=== PATIENT | male | born 1950 | race Caucasian/White ===

== ENCOUNTER 2020-12-04 19:25 | Emergency (ER) | payer MEDICARE, OTHER ==
[~2020-12-04] VITALS: Ht 175.3 cm; Wt 67.6 kg
[2020-12-04 20:10] LABS: BASOPHILS % (AUTO) 0.3 % (0.0-2.0); EOSINOPHILS % (AUTO) 2.3 % (0.0-6.0); HEMATOCRIT 43 % (39-51); HEMOGLOBIN 14.5 g/dL (13.5-17.5); LYMPHOCYTES # (AUTO) 2.2 K/uL (0.8-4.8); LYMPHOCYTES % (AUTO) 21.9 % (20.0-44.0); MEAN CORPUSCULAR HGB CONC 34 g/dl (31.0-36.0); MEAN CORPUSCULAR VOLUME 96 fL (80-96); MONOCYTES # (AUTO) 0.9 K/uL (0.1-1.30); MONOCYTES % (AUTO) 8.8 % (2.0-12.0); NEUTROPHILS # (AUTO) 6.6 K/uL (1.8-8.9); NEUTROPHILS % (AUTO) 66.7 % (43.0-81.0); PLATELET COUNT (AUTO) 305 K/uL (150-450); RED BLOOD CELL COUNT(AUTO) 4.46 MIL/uL (4.5-6.0); WHITE BLOOD COUNT (AUTO) 9.8 K/uL (4.3-11.0)
[2020-12-04 20:17] LABS: CARBON DIOXIDE 30 mmol/L (21-32); CHLORIDE 106 mmol/L (98-107); CREATININE 0.8 mg/dL (0.6-1.3); GLUCOSE 91 mg/dL (74-106); POTASSIUM 4.1 mmol/L (3.5-5.1); SODIUM SERUM 143 mmol/L (136-145); UREA NITROGEN, BLOOD 19 mg/dL (7-18)
[2020-12-04 20:18] LABS: BILIRUBIN,URINE Negative (NEGATIVE); COLOR,URINE DARK YELLOW (YELLOW); LEUKOCYTE ESTERASE ,URINE Negative (NEGATIVE); NITRITE, URINE Negative (NEGATIVE); PH,URINE 5.5 (5.0-8.0); PROTEIN,URINE Negative (NEGATIVE); UGLUCOSE Negative (NEGATIVE)
[2020-12-04 20:25] LABS: ALANINE AMINOTRANSFERASE 16 U/L (12-78); ALCOHOL, BLOOD < 3 mg/dL (0-0); ALKALINE PHOSPHATASE 61 U/L (46-116); ASPARTATE AMINOTRANSFERASE 13 U/L (15-37); BILIRUBIN,DIRECT 0.1 mg/dL (0.0-0.2); BILIRUBIN,TOTAL 0.3 mg/dL (0.2-1.0)
[2020-12-04 20:27] LABS: BACTERIA,URINE None seen /HPF (None Seen); MUCUS,URINE Many /LPF (None Seen); SQUAMOUS EPITHELIAL CELL,UR Few /HPF (None Seen)
[2020-12-04 20:28] LABS: ACETAMINOPHEN < 0 ug/ml (10-30)
[2020-12-04] MEDS ORDERED: HYDROCODONE/APAP 5/325MG TABLET PO ONE (21:00)
[2020-12-04] MEDS ORDERED: HYDROCODONE/APAP 5/325MG TABLET ONE (21:08)
[2020-12-04 21:15] VITALS: BP 130/77
--- NOTE | 2020-12-04 21:15 | NUR ---
Patient discharged to home in stable condition. Written and verbal after care instructions given. Patient verbalizes understanding of instruction.
--- NOTE | 2020-12-04 21:57 | NUR ---
[facility] WILL BE TRANSPORTING THE PATIENT IN 45 MINUTES BACK TO HIS FACILITY PER [place] DISPATCHER.
--- NOTE | 2020-12-04 22:10 | NUR ---
SPOKE TO [place] FROM [facility] TO NOTIFY HER ABOUT PT COMING BACK TO FACILITY.
--- NOTE | 2020-12-04 23:03 | NUR ---
Patient discharged to SNF in stable condition via ambulance. Written and verbal after care instructions given. Patient verbalizes understanding of instruction.
== END 2020-12-04 21:15 ==
LOC: ER 19:25
DX: G89.4 Chronic pain syndrome (principal); J44.9 Chronic obstructive pulmonary disease, unspecified; E78.5 Hyperlipidemia, unspecified; F32.9 Major depressive disorder, single episode, unspecified; D64.9 Anemia, unspecified; Z20.822 Contact with and (suspected) exposure to COVID-19
CPT/HCPCS: 36415; 80048-TC; 80076-TC; 81001; 85025-TC; C9803; G0480

== ENCOUNTER 2021-02-22 15:31 | Inpatient (IN) | payer MEDICARE, OTHER ==
[~2021-02-22] VITALS: Ht 175.3 cm; Wt 71.2 kg
[2021-02-22 16:01] LABS: BASOPHILS % (AUTO) 0.4 % (0.0-2.0); EOSINOPHILS % (AUTO) 2.3 % (0.0-6.0); HEMATOCRIT 42 % (39-51); HEMOGLOBIN 14.4 g/dL (13.5-17.5); LYMPHOCYTES # (AUTO) 2.2 K/uL (0.8-4.8); LYMPHOCYTES % (AUTO) 22.7 % (20.0-44.0); MEAN CORPUSCULAR HGB CONC 34 g/dl (31.0-36.0); MEAN CORPUSCULAR VOLUME 97 fL (80-96); MONOCYTES # (AUTO) 0.7 K/uL (0.1-1.30); MONOCYTES % (AUTO) 7.2 % (2.0-12.0); NEUTROPHILS # (AUTO) 6.6 K/uL (1.8-8.9); NEUTROPHILS % (AUTO) 67.4 % (43.0-81.0); PLATELET COUNT (AUTO) 306 K/uL (150-450); RED BLOOD CELL COUNT(AUTO) 4.39 MIL/uL (4.5-6.0); WHITE BLOOD COUNT (AUTO) 9.8 K/uL (4.3-11.0)
--- NOTE | 2021-02-22 16:02 | NUR ---
CHARI CARNES SENT HERE FROM SNF FOR MEDICAL CLEARANCE. PT MENTIONED TO HIS MD "I'M TIRED OF LIVING". PT FEELING DEPRESSED BUT DENIES SI AT THIS TIME. PT CALM & COOPERATIVE, DENIES CP, SOB, DIZZINESS, N/V/D AT THIS TIME. AWAITING EVAL BY ZEENAT. GLADYS AT & WILL CONT TO MONITOR.
[2021-02-22 16:16] LABS: CALCIUM, SERUM 8.8 mg/dL (8.5-10.1); CARBON DIOXIDE 29 mmol/L (21-32); CHLORIDE 103 mmol/L (98-107); CREATININE 0.8 mg/dL (0.6-1.3); GLUCOSE 102 mg/dL (74-106); POTASSIUM 4.1 mmol/L (3.5-5.1); SODIUM SERUM 138 mmol/L (136-145); UREA NITROGEN, BLOOD 18 mg/dL (7-18)
[2021-02-22 16:28] LABS: ALANINE AMINOTRANSFERASE 13 U/L (12-78); ALBUMIN 3.9 g/dL (3.4-5.0); ALCOHOL, BLOOD < 3 mg/dL (0-0); ALKALINE PHOSPHATASE 55 U/L (46-116); ASPARTATE AMINOTRANSFERASE 13 U/L (15-37); BILIRUBIN,DIRECT 0.1 mg/dL (0.0-0.2); BILIRUBIN,TOTAL 0.4 mg/dL (0.2-1.0); TOTAL PROTEIN, SERUM 6.6 g/dL (6.4-8.2)
[2021-02-22 16:29] LABS: ACETAMINOPHEN 0 ug/ml (10-30)
[2021-02-22 17:07] LABS: BILIRUBIN,URINE NEGATIVE (NEGATIVE); COLOR,URINE YELLOW (YELLOW); LEUKOCYTE ESTERASE ,URINE NEGATIVE (NEGATIVE); NITRITE, URINE NEGATIVE (NEGATIVE); PROTEIN,URINE NEGATIVE (NEGATIVE); UGLUCOSE NEGATIVE (NEGATIVE); UROBILINOGEN,URINE 0.2 EU/dL (0.2)
--- NOTE | 2021-02-22 17:27 | NUR ---
CALLED JOSUE, CUSTOMER PROGRAM SPECIALIST, AND WAS NOTIFIED OF PT STATUS.
--- NOTE | 2021-02-22 18:47 | NUR ---
ROOM 212-1
--- NOTE | 2021-02-22 21:12 | NUR ---
REPORT GIVEN TO NURSE FAH FOR TONY
--- NOTE | 2021-02-22 21:49 | NUR ---
PATIENT TRANSFERRED TO 212-1 IN A GURNEY IN STABLE CONDITION.
[2021-02-22] MEDS ORDERED: ACETAMINOPHEN 325 MG TABLET PO PRN (22:30)
[2021-02-22] MEDS ORDERED: BLOOD SUGAR DIAGNOSTIC 1 EACH STRIP IN ONE (22:30)
[2021-02-22] MEDS ORDERED: LORAZEPAM 0.5 MG TABLET PO PRN (22:30)
[2021-02-22] MEDS ORDERED: MAGNESIUM HYDROXIDE 30 ML UDC PO PRN (22:30)
[2021-02-22] MEDS ORDERED: MAG HYDROX/AL HYDROX/SIMETH 30 ML UDC PO PRN (22:30)
[2021-02-22] MEDS ORDERED: TEMAZEPAM 7.5 MG CAPSULE PO PRN (22:30)
[2021-02-23] MEDS ORDERED: THIA100V2 IJ
[2021-02-23] MEDS ORDERED: TRAZ-257 PO
[2021-02-23] MEDS ORDERED: DULO30CA2 PO
[2021-02-23] MEDS ORDERED: ATOR10TA PO
[2021-02-23] MEDS ORDERED: DRON400T6 PO
[2021-02-23] MEDS ORDERED: IBUP-1953 PO
[2021-02-23] MEDS ORDERED: OXYC-133 PO
[2021-02-23] MEDS ORDERED: DOCU100C36 PO
[2021-02-23] MEDS ORDERED: ALBU2.5V13 IH
[2021-02-23] MEDS ORDERED: MELA3TAB41 PO
[2021-02-23] MEDS ORDERED: IBUPROFEN 400 MG TABLET PO SCH (00:30)
[2021-02-23] MEDS ORDERED: ALBUTEROL FS 2.5 MG/0.5 ML VIAL.NEB IH PRN (00:30)
[2021-02-23] MEDS ORDERED: MELATONIN 3 MG TABLET PO SCH (00:30)
[2021-02-23] MEDS ORDERED: MULT-754 PO (00:55)
[2021-02-23 00:56] VITALS: BP 130/70
--- NOTE | 2021-02-23 01:17 | NUR ---
GPS PASTER SUPERVISOR NOTES: PATIENT ARRIVED THIS UNIT ON A W/CR WITH AN ER STAFF AT 2200. PATIENT IS ON A 5150 HOLD PLACED 02/22/21 @ 1928. PER HOLD PATIENT WAS BIB AMBULANCE FROM [facility] D/O DEPRESSION AND SUICIDAL IDEATION. PER FACILITY STAFF, PATIENT HAS BEEN VERBALIZING THAT HE WANTS TO AND ASKING FOR A GUN TO SHOOT HIMSELF, AND THAT HE IS TIRED OF BEING IN PAIN. UPON FACE TO FACE EVALUATION PATIENT DENIES FEELING SUICIDAL AT THIS TIME. PATIENT IS A/O X2-3, PASSIVE AND WITHDRAWN AND JUST WANTS TO SLEEP. NO S/S OF DISTRESS. RESPIRATION EVEN AND UNLABORED WITH EQUAL RISE AND FALL OF THE CHEST, ON ROOM AIR. PATIENT WAS UNABLE TO SIGN ADMISSION PAPERWORK BECAUSE HE'S TIRED, REFUSED SKIN ASSESSMENT, ACCU CHEK AND MRSA. PATIENT IS UNDER THE PSYCHIATRIC CARE OF DR VALENTE AND MEDICAL CARE OF LIAT. PATIENT OFFERED FLUID AND SNACKS TOLERATED. PATIENT HAS NO NEEDS AT THIS TIME. BED IN LOWEST POSITION AND LOCKED, SIDE RAILS UP X 2 FOR SAFETY. BED ALARM ON. CALL RICHARDSON WITHIN REACH. WILL CONTINUE TO MONITOR Q15 MINS FOR MOOD, SAFETY AND BEHAVIOR.
[2021-02-23 07:26] LABS: BASOPHILS % (AUTO) 0.4 % (0.0-2.0); EOSINOPHILS % (AUTO) 4.7 % (0.0-6.0); HEMATOCRIT 43 % (39-51); HEMOGLOBIN 14.6 g/dL (13.5-17.5); LYMPHOCYTES % (AUTO) 27.6 % (20.0-44.0); MEAN CORPUSCULAR HGB CONC 34 g/dl (31.0-36.0); MEAN CORPUSCULAR VOLUME 97 fL (80-96); MONOCYTES # (AUTO) 0.5 K/uL (0.1-1.30); MONOCYTES % (AUTO) 7.3 % (2.0-12.0); NEUTROPHILS # (AUTO) 4.3 K/uL (1.8-8.9); PLATELET COUNT (AUTO) 313 K/uL (150-450); RED BLOOD CELL COUNT(AUTO) 4.43 MIL/uL (4.5-6.0); WHITE BLOOD COUNT (AUTO) 7.1 K/uL (4.3-11.0)
[2021-02-23 07:40] LABS: ALBUMIN 3.7 g/dL (3.4-5.0); BILIRUBIN,TOTAL 0.8 mg/dL (0.2-1.0); CALCIUM, SERUM 8.5 mg/dL (8.5-10.1); CREATININE 0.8 mg/dL (0.6-1.3); POTASSIUM 4.3 mmol/L (3.5-5.1); TOTAL PROTEIN, SERUM 6.7 g/dL (6.4-8.2)
[2021-02-23 07:59] LABS: CREATININE 0.7 mg/dL (0.6-1.3)
[2021-02-23 08:00] VITALS: BP 105/67
[2021-02-23] MEDS: MULTIVITAMINS,THERAGRAN 1 UDTAB TABLET PO SCH (08:09)
[2021-02-23] MEDS: IBUPROFEN 400 MG TABLET PO SCH ×2 (08:09→16:18)
[2021-02-23] MEDS: DOCUSATE SODIUM 100 MG CAPSULE PO SCH (08:09)
[2021-02-23] MEDS: THIAMINE HCL 100 MG TABLET PO SCH (08:09)
[2021-02-23] MEDS ORDERED: Thiamine 100 MG in IV D5W 50 ML IV SCH (09:00)
[2021-02-23] MEDS ORDERED: DRONEDARONE HYDROCHLORIDE 400 MG TABLET PO SCH (09:00)
[2021-02-23] MEDS ORDERED: DULOXETINE HCL 30 MG CAPSULE.DR PO SCH (09:00)
[2021-02-23] MEDS ORDERED: Thiamine 100 MG/ML VIAL IJ SCH (09:00)
--- NOTE | 2021-02-23 09:13 | NUR ---
RN-CO: PT WAS SEEN AND EXAMINED BY DR VALENTE.
[2021-02-23] MEDS: DULOXETINE HCL 30 MG CAPSULE.DR PO SCH ×2 (09:40→16:18)
--- NOTE | 2021-02-23 12:05 | NUR ---
RN-CO: YODIT Harrell NP ORDERED TO PUT DNR IN THE MEDICTECH SINCE PT HAS SUBHA, NOTED.
--- NOTE | 2021-02-23 12:52 | NUR ---
RN-CO: ERROR IN DISCONTINUING TRAZODONE 100 MG PO HS RECONCILED BY DR FREY. REORDERED.
[2021-02-23 16:00] VITALS: BP 105/67
[2021-02-23 20:05] VITALS: BP 148/72
[2021-02-23] MEDS: MIRTAZAPINE 15 MG TABLET PO SCH (21:11)
[2021-02-23] MEDS ORDERED: TRAZODONE 50 MG TABLET PO SCH (22:00)
[2021-02-23] MEDS: TRAZODONE 50 MG TABLET PO SCH (22:15)
[2021-02-23] MEDS: ATORVASTATIN 10 MG TABLET PO SCH (22:15)
[2021-02-24 08:00] VITALS: BP 124/75
[2021-02-24] MEDS: MULTIVITAMINS,THERAGRAN 1 UDTAB TABLET PO SCH (08:56)
[2021-02-24] MEDS: DULOXETINE HCL 30 MG CAPSULE.DR PO SCH ×2 (08:56→17:45)
[2021-02-24] MEDS: THIAMINE HCL 100 MG TABLET PO SCH (08:56)
[2021-02-24] MEDS: DOCUSATE SODIUM 100 MG CAPSULE PO SCH (08:56)
[2021-02-24] MEDS: IBUPROFEN 400 MG TABLET PO SCH ×2 (08:56→17:45)
[2021-02-24 16:00] VITALS: BP 108/70
[2021-02-24 19:43] VITALS: BP 119/64
[2021-02-24 20:20] VITALS: BP 119/64
[2021-02-24] MEDS: MIRTAZAPINE 15 MG TABLET PO SCH (21:29)
[2021-02-24] MEDS: ATORVASTATIN 10 MG TABLET PO SCH (22:19)
[2021-02-24] MEDS: TRAZODONE 50 MG TABLET PO SCH (22:53)
[2021-02-25 08:00] VITALS: BP 104/66
[2021-02-25] MEDS: THIAMINE HCL 100 MG TABLET PO SCH (09:07)
[2021-02-25] MEDS: MULTIVITAMINS,THERAGRAN 1 UDTAB TABLET PO SCH (09:07)
[2021-02-25] MEDS: DULOXETINE HCL 30 MG CAPSULE.DR PO SCH ×2 (09:07→17:40)
[2021-02-25] MEDS: DOCUSATE SODIUM 100 MG CAPSULE PO SCH (09:07)
[2021-02-25] MEDS: IBUPROFEN 400 MG TABLET PO SCH ×2 (09:07→17:40)
--- NOTE | 2021-02-25 10:03 | NUR ---
OSCAR Initial Discharge Plan: Patient currently resides at [facility] ([phone]). Patient would want to return back upon discharge. Patient has no supportive contact at this time. OSCAR spoke with CJ admin ([phone]) from [facility] and he stated pt is welcomed back upon dc. OSCAR will coordinate with pt and treatment team for appropriate discharge.
[2021-02-25 16:00] VITALS: BP 120/56
[2021-02-25 19:41] VITALS: BP 122/66
[2021-02-25] MEDS: TRAZODONE 50 MG TABLET PO SCH (21:05)
[2021-02-25] MEDS: MIRTAZAPINE 15 MG TABLET PO SCH (21:05)
[2021-02-25] MEDS: ATORVASTATIN 10 MG TABLET PO SCH (21:05)
[2021-02-26 08:00] VITALS: BP 97/59
[2021-02-26] MEDS: IBUPROFEN 400 MG TABLET PO SCH ×2 (08:40→16:45)
[2021-02-26] MEDS: DOCUSATE SODIUM 100 MG CAPSULE PO SCH (08:40)
[2021-02-26] MEDS: THIAMINE HCL 100 MG TABLET PO SCH (08:41)
[2021-02-26] MEDS: MULTIVITAMINS,THERAGRAN 1 UDTAB TABLET PO SCH (08:41)
[2021-02-26] MEDS: DULOXETINE HCL 30 MG CAPSULE.DR PO SCH ×2 (08:41→16:45)
--- NOTE | 2021-02-26 09:19 | NUR ---
WOUND CARE CONSULT: PT PRESENTS WITH MIDBACK WOUND WITH SMALL AMOUNT OF PURULENT DRAINAGE, PRESENT ON ADMISSION. SURGICAL CONSULT CALLED TO DR KOHANZADEH. [place] IN AGREEMENT WITH PLAN OF CARE. Addendum: 02/26/21 at 0930 by RANJIT MERCADO WNDNU DISCUSSED ABOVE WITH SURGICAL P.A. RECOMMENDATIONS MADE FOR WOUND CARE AND DISCUSSED WITH NURSING STAFF. IN AGREEMENT WITH PLAN OF CARE.
--- NOTE | 2021-02-26 14:29 | NUR ---
SW Note: SW met with patient for individual counseling. Pt presented with low mood. Pt stated he is feeling hopeful and that his depression is improving. He stated "don't we all feel depressed at times". Pt was minimizing his symptoms. SW actively listened and provided emotional support.
[2021-02-26 16:04] VITALS: BP 110/57
[2021-02-26] MEDS: NEOMY SULF/BACITRAC ZN/POLY 15 GM TUBE TP SCH (16:44)
--- NOTE | 2021-02-26 17:15 | NUR ---
WOUND CARE TREATMENT DONE ORDERED.
[2021-02-26 20:00] VITALS: BP 132/71
[2021-02-26] MEDS: ATORVASTATIN 10 MG TABLET PO SCH (21:00)
[2021-02-26] MEDS: TRAZODONE 50 MG TABLET PO SCH (21:00)
[2021-02-26] MEDS: MIRTAZAPINE 15 MG TABLET PO SCH (21:00)
[2021-02-27 08:00] VITALS: BP 114/68
[2021-02-27] MEDS: NEOMY SULF/BACITRAC ZN/POLY 15 GM TUBE TP SCH ×2 (08:12→16:33)
[2021-02-27] MEDS: THIAMINE HCL 100 MG TABLET PO SCH (08:15)
[2021-02-27] MEDS: IBUPROFEN 400 MG TABLET PO SCH ×2 (08:15→16:32)
[2021-02-27] MEDS: DULOXETINE HCL 30 MG CAPSULE.DR PO SCH ×2 (08:15→16:33)
[2021-02-27] MEDS: DOCUSATE SODIUM 100 MG CAPSULE PO SCH (08:15)
[2021-02-27] MEDS: MULTIVITAMINS,THERAGRAN 1 UDTAB TABLET PO SCH (08:18)
[2021-02-27 16:00] VITALS: BP 118/63
[2021-02-27 18:00] VITALS: BP 118/63
[2021-02-27 20:00] VITALS: BP 108/61
[2021-02-27] MEDS: TRAZODONE 50 MG TABLET PO SCH (21:06)
[2021-02-27] MEDS: MIRTAZAPINE 15 MG TABLET PO SCH (21:06)
[2021-02-27] MEDS: ATORVASTATIN 10 MG TABLET PO SCH (21:06)
[2021-02-28 08:00] VITALS: BP 93/61
[2021-02-28] MEDS: DULOXETINE HCL 30 MG CAPSULE.DR PO SCH ×2 (08:15→16:38)
[2021-02-28] MEDS: THIAMINE HCL 100 MG TABLET PO SCH (08:16)
[2021-02-28] MEDS: DOCUSATE SODIUM 100 MG CAPSULE PO SCH (08:16)
[2021-02-28] MEDS: IBUPROFEN 400 MG TABLET PO SCH ×2 (08:16→16:38)
[2021-02-28] MEDS: MULTIVITAMINS,THERAGRAN 1 UDTAB TABLET PO SCH (08:16)
[2021-02-28] MEDS: NEOMY SULF/BACITRAC ZN/POLY 15 GM TUBE TP SCH ×2 (08:20→16:39)
--- NOTE | 2021-02-28 13:02 | NUR ---
Court Hearing: Patient's court hearing was today for [address] released pt back to his facility.
--- NOTE | 2021-02-28 14:30 | NUR ---
RNHusamCO: Patient was released by court however patient signed Voluntary form.
[2021-02-28 16:00] VITALS: BP 108/59
--- NOTE | 2021-02-28 19:30 | NUR ---
GPS RN NOTE, RECEIVED PATIENT AWAKE AND IN BED, NO S/S OR COMPLAINTS OF PAIN AT THIS TIME. PATIENT IS DISPLAYING NO S/S OF APPARENT DISTRESS AT THIS TIME. PATIENT BREATHING IS UNLABORED WITH EQUAL RISE AND FALL OF THE CHEST. PATIENT IS ALERT AND ORIENTED X 2-3 ON ROOM AIR WITH A SPO2 97%. PATIENT IS COMPLIANT WITH MEDICATIONS, DEPRESSED, AND IS COOPERATIVE. PATIENT DENIES SUICIDAL AND HOMICIDAL IDEATIONS AT THIS TIME. PATIENT ASSISTED WITH TURNING AND REPOSITIONING Q2HR AND PRN FOR COMFORT AND CIRCULATION. PATIENT HAS NO NEEDS AT THIS TIME. PATIENT EDUCATED ON THE USE OF THE CALL RICHARDSON. PATIENT BED SIDE RAILS UP X 2 FOR SAFETY. PATIENT BED IS LOCKED, LOW, WITH BED ALARM ON. WILL CONTINUE TO MONITOR THIS PATIENT Q15 MINUTES WITH THE HELP OF STAFF TO MAINTAIN SAFETY.
[2021-02-28 20:00] VITALS: BP 128/65
[2021-02-28] MEDS: TRAZODONE 50 MG TABLET PO SCH (21:09)
[2021-02-28] MEDS: MIRTAZAPINE 15 MG TABLET PO SCH (21:10)
[2021-02-28] MEDS: ATORVASTATIN 10 MG TABLET PO SCH (21:13)
[2021-03-01 08:00] VITALS: BP 119/68
--- NOTE | 2021-03-01 08:17 | NUR ---
SW Discharge Note: Patient will be discharged to longterm facility to [facility] [address] [place] [address]; . Please arrange Ambulance transportation for patient to be picked up at 2PM. Cut Roll Machine Offbearer spoke with QUYEN, Campaign Management Specialist at [facility]; ([phone], who stated patient will be accepted at facility today. Patient is alert and oriented x3, and is not able to plan for self-care at this time, but is willing to accept care provided for her at the facility. Patient denies any suicidal or homicidal ideations. Patient is aware and agreeable with discharge plans. Patient does not have any support at this time. Patient will follow-up at the facility with Dr. Coon and [employer] Specialist Dr. Rosario at [address], [place] [address]; ([phone]). Patient presents with euthymic mood and congruent affect.
[2021-03-01] MEDS: NEOMY SULF/BACITRAC ZN/POLY 15 GM TUBE TP SCH (08:32)
[2021-03-01] MEDS: MULTIVITAMINS,THERAGRAN 1 UDTAB TABLET PO SCH (08:34)
[2021-03-01] MEDS: IBUPROFEN 400 MG TABLET PO SCH (08:34)
[2021-03-01] MEDS: DULOXETINE HCL 30 MG CAPSULE.DR PO SCH (08:34)
[2021-03-01] MEDS: THIAMINE HCL 100 MG TABLET PO SCH (08:34)
[2021-03-01] MEDS: DOCUSATE SODIUM 100 MG CAPSULE PO SCH (08:34)
--- NOTE | 2021-03-01 12:18 | NUR ---
GPS/RN PT DISCHARGED TO [facility] TODAY VIA AMBULANCE. REPORT GIVEN TO HUSSAIN AT THE FACILITY. PROPERTY RETURNED PRESCRIPTIONS AND EXIT CARE PROVIDED. PT REFUSED PICTURES TAKEN. OM D/C. NO SI OR HI AT THE TIME OF DISCHARGE REPORTED. VSS.
== END 2021-03-01 11:30 | DRG 885 ==
LOC: ER 15:33 → GPS 20:46
PROVIDERS: ADMIT Psychiatry & Neurology Psychosomatic Medicine; ATTEND Registered Nurse
DX: F33.2 Major depressive disorder, recurrent severe without psychotic features (principal); R45.851 Suicidal ideations; G89.29 Other chronic pain; J44.9 Chronic obstructive pulmonary disease, unspecified; Z85.841 Personal history of malignant neoplasm of brain; E78.5 Hyperlipidemia, unspecified; F41.9 Anxiety disorder, unspecified; D64.9 Anemia, unspecified; R51.9 Headache, unspecified; L72.3 Sebaceous cyst; Z79.899 Other long term (current) drug therapy; Z20.822 Contact with and (suspected) exposure to COVID-19
CPT/HCPCS: 36415; 80048-TC; 80053-TC; 80061-TC; 80076-TC; 82565-TC; 85025-TC; 87081-TC; 97116-TC; 97530-TC; G0480; J3411; J7060